=== PATIENT | female | born 1975 | race Caucasian/White ===

== ENCOUNTER 2018-11-23 17:36 | Emergency (ER) | payer MEDICAID ==
[~2018-11-23] VITALS: Ht 157.5 cm; Wt 58.0 kg
[2018-11-23] MEDS ORDERED: IBUPROFEN 600MG TABLET PO ONE (18:30)
[2018-11-23 22:21] VITALS: BP 138/81
== END 2018-11-23 22:22 | disposition home or self-care (01) ==
LOC: ER 17:36
DX: T23.201A Burn of second degree of right hand, unspecified site, initial encounter (principal); S20.219A Contusion of unspecified front wall of thorax, initial encounter; M25.572 Pain in left ankle and joints of left foot; V49.9XXA Car occupant (driver) (passenger) injured in unspecified traffic accident, initial encounter; Y93.89 Activity, other specified; Y92.89 Other specified places as the place of occurrence of the external cause; Y99.8 Other external cause status
CPT/HCPCS: 29125; 71045; 73110; 73130; 73610; 99283